=== PATIENT | female | born 1990 | race Caucasian/White ===

== ENCOUNTER 2021-02-26 20:14 | Emergency (ER) | payer BC ==
[2021-02-26 20:18] VITALS: BP 133/79; TEMP 98; BMI 26.6
[2021-02-26] MEDS ORDERED: KETOROLAC TROMETHAMINE 30 MG/1 ML VIAL IM ONE (20:51)
[2021-02-26] MEDS ORDERED: KETOROLAC TROMETHAMINE 30 MG/1 ML VIAL ONE (21:26)
[2021-02-26 21:36] LABS: URINE APPEARANCE CLEAR; URINE BILIRUBIN NEGATIVE (NEGATIVE); URINE COLOR YELLOW; URINE GLUCOSE (UA) NEGATIVE (NEGATIVE); URINE KETONE 1+ (NEGATIVE); URINE LEUK ESTERASE NEGATIVE (NEGATIVE); URINE NITRITE NEGATIVE (NEGATIVE); URINE PROTEIN NEGATIVE (NEGATIVE); URINE UROBILINOGEN 0.2 mg/dL (0.2-1.0)
[2021-02-26 21:44] LABS: HCG,QUALITATIVE URINE NEGATIVE
[2021-02-26 22:37] VITALS: PULSE 89
== END 2021-02-27 | disposition home or self-care (01) ==
LOC: JER 20:14
PROC: 3E0233Z Introduction of Anti-inflammatory into Muscle, Percutaneous Approach (ICD-10-PCS; principal; 2021-02-26)
DX: R35.0 Frequency of micturition (principal); N20.0 Calculus of kidney; R10.32 Left lower quadrant pain
CPT/HCPCS: 76775-TC; 81003; 84703; 87086; 99284-25

== ENCOUNTER 2024-03-06 07:57 | Emergency (ER) | payer BC, OTHER ==
[2024-03-06 09:54] VITALS: TEMP 98.6; BMI 28.3
[2024-03-06] MEDS ORDERED: IBUPROFEN 600 MG TABLET (FP) PO ONE (10:09)
[2024-03-06] MEDS: IBUPROFEN 600 MG TABLET (FP) PO ONE (11:27)
[2024-03-06 14:09] VITALS: BP 129/87; PULSE 74; RESP 18
== END 2024-03-06 14:09 | disposition home or self-care (01) ==
LOC: JER 07:57
DX: S60.211A Contusion of right wrist, initial encounter (principal); M25.551 Pain in right hip; Y04.8XXA Assault by other bodily force, initial encounter
CPT/HCPCS: 72170-TC-FY; 73070-TC-RT-FY; 73110-TC-RT-FY; 73130-TC-RT-FY; 84703; 99284-25